=== PATIENT | female | born 1935 | race Caucasian/White ===

== ENCOUNTER → 2016-09-19 | Outpatient (CLI) | payer MEDICARE, OTHER | END | disposition home or self-care (01) | LOC: PCVCCLINIC 13:33 | PROVIDERS: ATTEND Internal Medicine Cardiovascular Disease | DX: I25.10 Atherosclerotic heart disease of native coronary artery without angina pectoris (principal); I10 Essential (primary) hypertension; E78.5 Hyperlipidemia, unspecified; R07.9 Chest pain, unspecified; E78.00 Pure hypercholesterolemia, unspecified; Z87.891 Personal history of nicotine dependence; Z79.899 Other long term (current) drug therapy | CPT/HCPCS: 80061; 93005; G0463 ==

== ENCOUNTER → 2016-10-07 | Outpatient (CLI) | payer MEDICARE, OTHER ==
--- NOTE | 2016-10-07 16:36 | PCVCIMAG ---
APPROVED REPORT Exam: Stress Echocardiogram Indication: CAD , Chest pressure, HTN, HLP Patient Location: Echo lab Stress Nurse: Manju Benavides RN Status: routine Ht: 5 ft 3 in HR: 66 bpm BP: 124/70 mmHg Rhythm: NSR Procedure The patient underwent an Exercise Stress Test using the Roney Protocol. Blood pressure, heart rate, and EKG were monitored. An Echocardiogram was performed by registered dietetic technician in four stages in quad fashion. At peak stress, four selected images were obtained and placed side by side with resting images for comparison. Stress Test Details Stress Test: Exercise stress testing was performed using a Roney protocol. HR Resting HR: 66 bpmMax Heart Rate (APMHR): 141 bpm Max HR Achieved: 144 bpmTarget HR (85% APMHR): 119 bpm % of APMHR: 102 Recovery HR: 83 bpm HR response to stress: Normal HR response to stress BP Resting BP: 124/70 mmHg Max BP: 164/70 mmHg Recovery BP: 138/70 mmHg ECG Resting ECG: Sinus Rhythm Stress ECG: Sinus Rhythm ST Change: Normal Arrhythmia: None Recovery ECG: Sinus Rhythm Recovery ST Change: Normal Recovery Arrhythmia: None Clinical Reason for Termination: Maximal effort Stress Symptoms: non-limiting chest pressure that improved with exercise Exercise duration: 9 min sec Highest Stage Achieved: Stage 3: 3.4 mph at 14% grade. Exercise capacity: 10.1 METs Overall Exercise Capacity for Age: Good Pre-Stress Echo The resting Echocardiogram showed normal left ventricular contractility with an estimated Ejection Fraction of about >55%. Normal wall motion in all segments on baseline images. Post-Stress Echo The stress Echocardiogram showed normal left ventricular contractility with an estimated Ejection Fraction of about 60-65%. Normal augmentation of wall motion in all segments on post stress images. Clinical No clinical or ECG evidence for ischemia. Conclusion Clinical Response: Non-ischemic Exercise Capacity: Average Stress ECG Response: Non-ischemic Stress Echo Images: Non-ischemic Other Information Study Quality: Adequate
== END | disposition home or self-care (01) ==
LOC: PCVCIMAG 13:48
PROVIDERS: ATTEND Internal Medicine Cardiovascular Disease
DX: I25.10 Atherosclerotic heart disease of native coronary artery without angina pectoris (principal); I10 Essential (primary) hypertension; E78.00 Pure hypercholesterolemia, unspecified
CPT/HCPCS: 93325; 93351

== ENCOUNTER → 2017-07-06 | Outpatient (CLI) | payer MEDICARE, OTHER | END | disposition home or self-care (01) | LOC: PCVCCLINIC 13:55 | DX: I25.10 Atherosclerotic heart disease of native coronary artery without angina pectoris (principal); I10 Essential (primary) hypertension; E78.00 Pure hypercholesterolemia, unspecified; R00.2 Palpitations; Z87.891 Personal history of nicotine dependence; Z79.899 Other long term (current) drug therapy | CPT/HCPCS: 80061; 93005; G0463 ==

== ENCOUNTER → 2018-06-11 | Outpatient (CLI) | payer MEDICARE, OTHER ==
--- NOTE | 2018-06-11 11:38 | PCVCIMAG ---
APPROVED REPORT Study performed: 06/11/2018 09:56:15 Exam: Stress Echocardiogram Indication: CAD Patient Location: Echo lab Stress Nurse: Eugenie Status: routine Ht: 5 ft 3 in HR: 59 bpm BP: 118/70 mmHg Rhythm: NSR Medical History Medical History: HTN, Hyperlipidemia, palpitations Procedure The patient underwent an Exercise Stress Test using the Roney Protocol. Blood pressure, heart rate, and EKG were monitored. An Echocardiogram was performed by geophysical data technician in four stages in quad fashion. At peak stress, four selected images were obtained and placed side by side with resting images for comparison. Stress Test Details Stress Test: Exercise stress testing was performed using a Roney protocol. HR Resting HR: 59 bpmMax Heart Rate (APMHR): 139 bpm Max HR Achieved: 144 bpmTarget HR (85% APMHR): 118 bpm % of APMHR: 103 Recovery HR: 76 bpm HR response to stress: Normal HR response to stress BP Resting BP: 118/70 mmHg Max BP: 176/78 mmHg Recovery BP: 148/76 mmHg BP response to stress: Normal blood pressure response to stress. ECG Resting ECG: Sinus Rhythm Stress ECG: Sinus Rhythm Recovery ECG: Sinus Rhythm Clinical Reason for Termination: Maximal effort Exercise duration: 8 min sec Highest Stage Achieved: Stage 3: 3.4 mph at 14% grade. Exercise capacity: 10.10 METs Overall Exercise Capacity for Age: Good Pre-Stress Echo The resting Echocardiogram showed normal left ventricular contractility with an estimated Ejection Fraction of about 55-60%. Post-Stress Echo The stress Echocardiogram showed normal left ventricular contractility with an estimated Ejection Fraction of about 60-65%. Conclusion Clinical Response: Non-ischemic Exercise Capacity: Superior Stress ECG Response: Non-ischemic Stress Echo Images: Non-ischemic Other Information Study Quality: Good
== END | disposition home or self-care (01) ==
LOC: PCVCIMAG 09:26
PROVIDERS: ATTEND Internal Medicine Cardiovascular Disease
DX: I25.10 Atherosclerotic heart disease of native coronary artery without angina pectoris (principal); I10 Essential (primary) hypertension; E78.00 Pure hypercholesterolemia, unspecified; R07.9 Chest pain, unspecified
CPT/HCPCS: 93325; 93351

== ENCOUNTER → 2019-01-10 | Outpatient (CLI) | payer MEDICARE, OTHER ==
--- NOTE | 2019-01-10 13:53 | PCVCIMAG ---
APPROVED REPORT Study performed: 01/10/2019 11:42:57 Exam: Stress Echocardiogram Indication: Chest pressure Patient Location: Echo lab Stress Nurse: Manju Benavides RN Room #: 2 Status: routine Ht: 5 ft 3 in HR: 80 bpm BP: 120/74 mmHg Rhythm: NSR Medical History Medical History: CAD non obstructive, HTN Cardiac Risk Factors: HTN Pretest Chest Pain Characteristics: Exertional Chest pain Exercise History: Physically active Procedure The patient underwent an Exercise Stress Test using the Roney Protocol. Blood pressure, heart rate, and EKG were monitored. An Echocardiogram was performed by sow farm barn technician in four stages in quad fashion. At peak stress, four selected images were obtained and placed side by side with resting images for comparison. Stress Test Details Stress Test: Exercise stress testing was performed using a Roney protocol. HR Resting HR: 80 bpmMax Heart Rate (APMHR): 139 bpm Max HR Achieved: 139 bpmTarget HR (85% APMHR): 118 bpm % of APMHR: 100 Recovery HR: 78 bpm HR response to stress: Normal HR response to stress BP Resting BP: 120/74 mmHg Max BP: 178/74 mmHg Recovery BP: 124/70 mmHg BP response to stress: Normal blood pressure response to stress. ECG Resting ECG: Sinus Rhythm Stress ECG: Sinus Rhythm ST Change: Non-ischemic Maximum ST Deviation: -1.3 mm Arrhythmia: occ PACs Recovery ECG: Sinus Rhythm Recovery ST Change: Non-ischemic Recovery ST Deviation: -0.55 mm Recovery Arrhythmia: occ PACs Clinical Reason for Termination: Maximal effort Stress Symptoms: none Exercise duration: 7 min 16 sec Highest Stage Achieved: Stage 3: 3.4 mph at 14% grade. Exercise capacity: 10.1 METs Overall Exercise Capacity for Age: Good Scale: Active Angina Score: None No complications. Stress ECG Conclusion Alvarez Treadmill Score is 13.5 which is Low risk. Pre-Stress Echo The resting Echocardiogram showed normal left ventricular contractility with an estimated Ejection Fraction of about 55-60%. Normal wall motion in all segments on baseline images. Post-Stress Echo The stress Echocardiogram showed normal left ventricular contractility with an estimated Ejection Fraction of about 65-70%. Normal augmentation of wall motion in all segments on post stress images. Clinical No clinical or ECG evidence for ischemia. Conclusion Clinical Response: Non-ischemic Exercise Capacity: Superior Stress ECG Response: Non-ischemic Stress Echo Images: Non-ischemic No clinical, EKG or echocardiographic evidence for ischemia. No echocardiographic evidence for exercise induced ischemia. Normal stress echocardiogram with maximal exercise stress. Normal color doppler. No regurgitation or stenosis present on pulmonic, mitral, tricuspid and aortic valves. <Conclusion> No clinical, EKG or echocardiographic evidence for ischemia. No echocardiographic evidence for exercise induced ischemia. Normal stress echocardiogram with maximal exercise stress. Normal color doppler. No regurgitation or stenosis present on pulmonic, mitral, tricuspid and aortic valves.
== END | disposition home or self-care (01) ==
LOC: PCVCIMAG 11:32
PROVIDERS: ATTEND Internal Medicine Cardiovascular Disease
DX: I25.10 Atherosclerotic heart disease of native coronary artery without angina pectoris (principal); I10 Essential (primary) hypertension; R07.9 Chest pain, unspecified
CPT/HCPCS: 93325; 93351